=== PATIENT | male | born 1970 | race Two or more races ===

== ENCOUNTER 2023-06-21 15:24 | Emergency (ER) | payer OTHER ==
[~2023-06-21] VITALS: Ht 165.1 cm; Wt 71.0 kg
[2023-06-21] MEDS: cloNIDine HCL 0.1 MG TAB ONE (16:40)
[2023-06-21] MEDS: cloNIDine HCL 0.1 MG TAB PO ONE (16:42)
[2023-06-21] MEDS ORDERED: LOSA100T25 PO (16:52)
[2023-06-21 20:32] VITALS: BP 170/98; PULSE 70; RESP 18; TEMP 97.7; O2SAT 96
== END 2023-06-21 20:33 | disposition home or self-care (01) ==
LOC: ER 15:24
DX: I16.0 Hypertensive urgency (principal); Z87.891 Personal history of nicotine dependence; Z79.899 Other long term (current) drug therapy
CPT/HCPCS: 82962; 93005